=== PATIENT | female | born 1970 | race Caucasian/White ===

== ENCOUNTER 2017-06-21 13:52 | Emergency (ER) | payer OTHER ==
[2017-06-21 16:45] VITALS: BP 114/64
[2017-06-21] MEDS ORDERED: Ibuprofen TAB* 600 MG PO ONE (16:53)
--- NOTE | 2017-06-21 17:04 | UC ---
Hand/Wrist HPI - HPI Summary HPI Summary: Patient was skiing, fell caught humb underneather her. she is having trouble moving it and there is a lot - History Of Current Complaint Chief Complaint: UCUpperExtremity Stated Complaint: LEFT THUMB INJ Time Seen by Provider: 06/21/17 16:49 Hx Obtained From: Patient Hx Last Menstrual Period: n/a ?: No Onset/Duration: Sudden Onset, Lasting Hours Severity Initially: Severe Severity Currently: Severe Character Of Pain: Aching, Throbbing Aggravating Factor(s): Movement Alleviating Factor(s): Nothing Associated Signs And Symptoms: Positive: Swelling, Bruising - Allergies/Home Medications Allergies/Adverse Reactions: Allergies Allergy/AdvReac Type Severity Reaction Status Date / Time Sulfa Antibiotics Allergy Hives Verified 06/21/17 14:45 Home Medications: Home Medications Metoprolol Tartrate TAB* [Lopressor TAB*] 25 mg PO DAILY 06/21/17 [History Confirmed 06/21/17] PMH/Surg Hx/FS Hx/Imm Hx Previously Healthy: Yes - Surgical History Surgical History: None - Family History Known Family History: Positive: Hypertension - Social History Alcohol Use: Daily Substance Use Type: None Smoking Status (MU): Never Smoked Tobacco Review of Systems Constitutional: Negative Skin: Negative Eyes: Negative ENT: Negative Respiratory: Negative Cardiovascular: Negative Gastrointestinal: Negative Genitourinary: Negative Motor: Negative Neurovascular: Negative Musculoskeletal: Arthralgia, Decreased ROM - left thumb, Edema, Myalgia Neurological: Negative Psychological: Negative Is Patient Immunocompromised?: No All Other Systems Reviewed And Are Negative: Yes Physical Exam Triage Information Reviewed: Yes Appearance: Well-Appearing, Well-Nourished, Pain Distress Vital Signs: Initial Vital Signs Temp 98.8 F 06/21/17 14:40 Pulse 93 06/21/17 14:40 Resp 16 06/21/17 14:40 BP 109/63 06/21/17 14:40 Pulse Ox 98 06/21/17 14:40 Vital Signs Reviewed: Yes Eye Exam: Normal ENT Exam: Normal Dental Exam: Normal Neck exam: Normal Respiratory Exam: Normal Cardiovascular Exam: Normal Abdominal Exam: Normal Bowel Sounds: Positive: Present Musculoskeletal: Positive: Strength Limited @, ROM Limited @ - in all directions , Edema @ - left thumb with bruising, no snuff box tenderness Neurological Exam: Normal Psychological Exam: Normal Skin Exam: Normal Hand/Wrist Course/Dx - Course Course Of Treatment: hx obtained, exam performed, xray shows possible fracture, referred to ortho, - Differential Dx/Diagnosis Differential Diagnosis/HQI/PQRI: Contusion, Dislocation, Fracture, Infection, Sprain, Strain, Tendonitis Provider Diagnoses: possible avulsion fracture of the left thumb Discharge - Discharge Plan Condition: Stable Disposition: HOME Patient Education Materials: Avulsion Fracture (ED) Referrals: ARTURO Jacobsen [Primary Care Provider] - Olive Bravo MD [Medical Doctor] - Rene Ortiz MD [Medical Doctor] - Additional Instructions: 1. Ice, use the sling, ibuprofen 400-600 mg every 4-6 hours. 2. Follow up with the orthopedic in the next 48 hours.
--- NOTE | 2017-06-21 17:23 | RAD ---
INDICATION: Left thumb injury. TECHNIQUE: 3 views of the left thumb were obtained. FINDINGS: There is soft tissue swelling adjacent to the metacarpal phalangeal joint and metacarpal bone. There is a small 1.5 mm linear density adjacent to the lateral aspect of the distal metacarpal bone possibly representing a small avulsion fracture fragment. Joint spaces appear maintained. IMPRESSION: POSSIBLE SMALL AVULSION FRACTURE FRAGMENT ARISING FROM THE DISTAL METACARPAL BONE.
== END 2017-06-21 17:55 | disposition home or self-care (01) ==
LOC: UCCORT 13:52 → MERGE 13:52 → UCCORT 17:55
DX: S69.82XA Other specified injuries of left wrist, hand and finger(s), initial encounter (principal); W19.XXXA Unspecified fall, initial encounter; Y93.9 Activity, unspecified; Y92.9 Unspecified place or not applicable; Z88.2 Allergy status to sulfonamides
CPT/HCPCS: 99202; A9270-GY; G0463

== ENCOUNTER 2017-07-06 12:31 | Day surgery (SDC) | payer OTHER ==
[~2017-07-06 12:31] MED LIST: Buffered Lidocaine 0.9% SYRIN* 5 ML/SYR SYRINGE INTRADERM ONE; Dexamethasone IV* 4 MG/ML 1 ML (4 MG) IV SLOW PU ONE; Famotidine IV* 10 MG/ML 2 ML (20 mg) IV ONE
[2017-07-06] MEDS ORDERED: ceFAZolin 2 GM PREMIX (*) 2 GM/50 ML BAG IVPB ONE (12:38)
[2017-07-06] MEDS ORDERED: Dexamethasone IV* 4 MG/ML 1 ML (4 MG) ONE (12:38)
[2017-07-06] MEDS ORDERED: Buffered Lidocaine 0.9% SYRIN* 5 ML/SYR SYRINGE ONE (12:38)
[2017-07-06] MEDS ORDERED: Famotidine IV* 10 MG/ML 2 ML (20 mg) ONE (12:38)
[2017-07-06] MEDS ORDERED: fentaNYL* 50 MCG/ML 2 ML VIAL (100 MCG VIAL) ONE (13:25)
[2017-07-06] MEDS ORDERED: Propofol* 10 MG/ML 20 ML BTL IV PUSH ONE (13:25)
[2017-07-06] MEDS ORDERED: Ondansetron INJ* 2 MG/ML VIAL ONE (13:25)
[2017-07-06] MEDS ORDERED: Midazolam* 1 MG/ML 10 ML VIAL (10 MG) ONE (13:25)
[2017-07-06] MEDS ORDERED: Ketorolac INJ* 30 MG/ML 1 ML VIAL ONE (13:27)
[2017-07-06] MEDS ORDERED: ROPIVACAINE 5 MG/ML 30 ML BTL (0.5%) ONE (13:27)
[2017-07-06] MEDS ORDERED: Bupivacaine 0.5% SDV PF* 30 ML VIAL ONE (14:21)
[2017-07-06] MEDS ORDERED: Ondansetron INJ* 2 MG/ML VIAL IV PRN (15:26)
[2017-07-06] MEDS ORDERED: oxyCODONE/Acetamin 5/325 MG* TAB PO PRN (15:26)
[2017-07-06 16:54] VITALS: BP 97/57
--- NOTE | 2017-07-07 13:04 | OP ---
DATE OF OPERATION: 07/06/17 - [facility] DATE OF : 68 SURGEON: Jorge Anderson MD. HAND ETCHER: ZANE Crocker. An assistant refinery operator was needed for the procedure to aid in positioning of the arm and retraction. ANESTHESIOLOGIST: Dr. Rg ANESTHESIA: Peripheral nerve block with monitored anesthesia care. PRE-OPERATIVE DIAGNOSIS: Left thumb ulnar collateral ligament tear with instability. POST-OPERATIVE DIAGNOSIS: Left thumb ulnar collateral ligament tear with instability. OPERATIVE PROCEDURE: Repair of left thumb metacarpophalangeal joint ulnar collateral ligament. INDICATIONS: Oliva Pruett injured the thumb week and half to two weeks ago. My partner had seen her and gotten x-rays and an MRI. She had instability of the left thumb metacarpophalangeal joint ulnar collateral ligament. MRI imaging showed a tear there. I talked to her about her options. I recommended that we repair the ulnar collateral ligament to try to give her a stable thumb. She elected to proceed. ESTIMATED BLOOD LOSS: 5 mL. COMPLICATIONS: None. FINDINGS: As expected. The ulnar collateral ligament was avulsed off its insertion on to the proximal phalanx. DESCRIPTION OF PROCEDURE: Oliva Pruett was seen in the preoperative holding area. The correct side, site, and procedure were identified. We came back to the operating room and the arm was prepped and draped in the usual fashion. A time-out was performed. I began by exsanguinating the arm with an Esmarch and the tourniquet was inflated to 250 mmHg. I made a lazy-S incision over the ulnar aspect of the left thumb metacarpophalangeal joint. Dissection was carried down, the longitudinal sensory nerves were preserved and retracted with full thickness flaps off the paratenon and adductor aponeurosis. The adductor aponeurosis was split and retracted dorsally and volarly to expose the ligament. It was seem to be a avulsed off its insertion on to the proximal phalanx. I went ahead and cleaned up the edge of the ligament and the insertion site with the curette and prepared it for repair. I placed two micro Mitek sutures anchors in the footprint of the ligament. These were then whip stitched up into the ligament and sewn down in standard fashion to get excellent ligament to bone apposition. I took some 4-0 Ethibond suture and augmented the edges of the repair bringing the volar aspect of the ligament down and sewing it to the volar plate. Once I had the repair nicely secured, the thumb was very stable in both 0 and 30 degrees. The wound was copiously irrigated. The adductor aponeurosis was closed with a 4-0 Ethibond suture. Skin was closed with 3-0 Monocryl suture and Steri-Strips. The area was infiltrated with 0.25% plain Marcaine. The wound was dressed with 4x4s, sterile Webril, and a thumb spica splint after the tip of the thumb was applied, removing all pressure off the ulnar collateral ligament and protecting the repair. Tourniquet was deflated. The hand pinked up immediately. She was taken to recovery room in stable condition. [id number]/[id number] #: [id number] MTDD
== END 2017-07-06 17:06 | disposition home or self-care (01) ==
LOC: OR 12:31
PROVIDERS: ATTEND Orthopaedic Surgery Hand Surgery
DX: S63.642A Sprain of metacarpophalangeal joint of left thumb, initial encounter (principal); I42.9 Cardiomyopathy, unspecified; I49.3 Ventricular premature depolarization; I49.1 Atrial premature depolarization; R55 Syncope and collapse; V00.321A Fall from snow-skis, initial encounter; Y93.23 Activity, snow (alpine) (downhill) skiing, snowboarding, sledding, tobogganing and snow tubing; Y92.39 Other specified sports and athletic area as the place of occurrence of the external cause
CPT/HCPCS: 81025; J0690; J1100; J1885; J2250; J2405; J2704; J2795; J3010